=== PATIENT | female | born 2000 | race Hispanic/Latino ===

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

== ENCOUNTER 2021-04-09 22:00 | Outpatient (CLI) | payer BC, MEDICAID, SELFPAY ==
[2021-04-09 22:04] VITALS: BMI 28.6
[2021-04-09 22:11] VITALS: PULSE 78; O2SAT 98
--- NOTE | 2021-04-09 22:29 | OB.TRI.NOTE ---
HPI - General HPI Narrative IZABELA CORDERO, is a 20 F at 38.6 weeks gestation that presents to triage with contractions and small amount of vaginal bleeding. She noticed today after wiping. Denies any loss of fluid. Positive movement. Maternal Data Information SUNNY Calculator Estimated Delivery Date Method Current WG Current Estimate 04/17/21 Manual 39w 2d PFSH PFSH Home Medications doxylamine succinate 25 mg PO QHS 11/28/20 [History Last Taken 04/08/21 10:00] ondansetron HCl 4 mg PO Q6H PRN PRN 11/28/20 [History Last Taken 04/09/21] vit,[id number] 1 tablet PO DAILY 11/28/20 [History Last Taken 04/10/21 10:00] hydroxyzine pamoate [Vistaril] 25 mg PO Q6H PRN PRN 04/09/21 [History Last Taken 04/05/21 10:00] ferrous sulfate [iron] 325 mg PO DAILY 04/11/21 [History Last Taken 04/09/21] Allergy/AdvReac Type Severity Reaction Status Date / Time No Known Allergies Allergy Verified 04/11/21 08:26 Family History Father Diabetes Grandmother Diabetes Cancer Grandfather Diabetes Grandfather Hypertension Mother Asthma Surgical History [place] teeth extracted Social History Smoking Status: Former smoker History Elective abortions Hx Para 0 Spontaneous abortions Hx # Term Pregnancies Ectopic pregnancies Hx # Pregnancies Multiple births # of living children ROS Eyes Eyes: Denies blurry vision Cardiovascular Cardiovascular: Reports none; Denies chest pain at rest, chest pain with activity or dizziness Respiratory/Chest Respiratory/Chest: Denies cough or dyspnea Gastrointestinal Gastrointestinal: Reports none and other; Denies diarrhea or vomiting Genitourinary Genitourinary: Denies dysuria Musculoskeletal Musculoskeletal: Reports none Integumentary Integumentary: Reports none; Denies rash Neurologic Neurologic: Denies dizziness, headache(s) or other visual disturbances Psychiatric Psychiatric: Reports none Physical Exam Const alert and no apparent distress General Appearance: cooperative Orientation / Consciousness: awake Exam Limitations: no limitations HEENT normocephalic Eyes General Eye: normal appearance of both eyes Neck full ROM Chest inspection of chest normal Resp normal respiratory effort and normal air movement Effort and Inspection: symmetric chest movement Auscultation: clear to auscultation bilaterally Cardio regular rate GI soft to palpation, non-tender and non-distended Inspection: and other Back/Spine normal ROM Extremity full ROM, normal capillary refill and no calf tenderness Skin no rashes or lesions noted Neuro oriented x3 and CN's II-XII intact bilaterally Psych mental status grossly normal NST FHR Rate Baby A Baseline: 140 Variability:: Moderate Accelerations:: 15 x 15 Decelerations:: None NST Reactive:: Yes FHR Category:: Category I Uterine Activity:: 4-5 minutes Assessment & Plan (1) 38 weeks gestation of : PLAN: Cat. 1 tracing NST reactive CE unchanged No active vaginal bleeding or old blood noted D/C home with follow up in office Dr. Ball notified
== END 2021-04-09 23:40 | disposition home or self-care (01) ==
LOC: WPOUT 22:04 → WP 22:04
PROVIDERS: PCP Pediatrics; Visit Provider Advanced Practice Midwife
DX: O46.93 Antepartum hemorrhage, unspecified, third trimester (principal); Z3A.38 38 weeks gestation of pregnancy
CPT/HCPCS: 59025; 59050; 99218; G0378

== ENCOUNTER 2021-04-11 08:40 | Inpatient (IN) | payer BC, MEDICAID, SELFPAY ==
[2021-04-09 22:20] VITALS: TEMP 36.6
[2021-04-11] VITALS (114 sets, daily range): BP systolic 116–165; BP diastolic 66–99; PULSE 62–113; TEMP 36.2–37.1; O2SAT 95–99; BMI 28.6
[2021-04-11] MEDS: Lactated Ringers 1,000 ML 200 ML IV ×2 (09:00→14:27)
[2021-04-11] MEDS: Lactated Ringers 500 ML 999 ML IV (09:15)
[2021-04-11 09:34] LABS: Absolute Lymphocyte Count 1.74 X10^3/uL (0.83-4.51); Absolute Neutrophil Count 7.2 X10^3/uL (2.0-7.7); Basophil# 0.02 X10^3/uL; Basophil% 0.2 % (0-1); Hematocrit 33.8 % (37-47); Hemoglobin 10.9 g/dL (12.0-15.0); Lymphocyte # 1.74 X10^3/ul (0.83-4.51); Lymphocyte % 17.9 % (19-41); Mean Corp Hgb Conc 32.2 g/dL (32-36); Mean Corpuscular Hgb 28.7 pg (27.0-32.0); Mean Corpuscular Volume 88.9 fL (81-99); Mean Platelet Vol. 12.6 fl (6.2-12.0); Monocyte# 0.64 X10^3/uL; Monocyte% 6.6 % (0-10); NRBC Flagged by Analyzer 0 % (0-5); Neutrophil # 7.16 X10^3/uL (2.7-7.7); Neutrophil % 73.8 % (47-70); Platelet Count 170 K/mm3 (150-450); RBC Distribution Width CV 13.2 % (11.6-14.6); RBC Distribution Width SD 43.2 fl (35.1-43.9); White Blood Count 9.7 K/mm3 (4.4-11.0)
[2021-04-11] MEDS: fentaNYL-bupivacaine (epidural) 100 ML BAG EPIDURAL ×2 (10:29→14:34)
[2021-04-11] MEDS: Oxytocin 30 units/NS 500 ml 30 UNITS/500 ML IV.SOLN 334 UNITS IV (19:00)
[2021-04-11] MEDS: Methylergonovine 0.2 MG/ML Ampul IM (19:08)
--- NOTE | 2021-04-11 19:22 | HP.PCM.OB_ITS ---
HPI - General General Date of Admission: 04/11/21 HPI Narrative IZABELA CORDERO, is a 20 F who presents with LOF & ctxs. Maternal Data Information Final SUNNY: 04/17/21 Gestational age: 39&1 PFSH PFSH Home Medications doxylamine succinate 25 mg PO QHS 11/28/20 [History Last Taken 04/08/21 10:00] ondansetron HCl 4 mg PO Q6H PRN PRN 11/28/20 [History Last Taken 04/09/21] vit,[id number] 1 tablet PO DAILY 11/28/20 [History Last Taken 04/10/21 10:00] hydroxyzine pamoate [Vistaril] 25 mg PO Q6H PRN PRN 04/09/21 [History Last Taken 04/05/21 10:00] ferrous sulfate [iron] 325 mg PO DAILY 04/11/21 [History Last Taken 04/09/21] Allergy/AdvReac Type Severity Reaction Status Date / Time No Known Allergies Allergy Verified 04/11/21 08:26 Family History (Updated 04/11/21 @ 09:28 by Neena Alegria RN) Father Diabetes Grandmother Diabetes Cancer Grandfather Diabetes Grandfather Hypertension Mother Asthma Surgical History (Updated 04/11/21 @ 09:26 by Neena Alegria RN) [place] teeth extracted Social History Smoking Status: Former smoker History Elective abortions Hx Para 0 Spontaneous abortions Hx # Term Pregnancies Ectopic pregnancies Hx # Pregnancies Multiple births # of living children Vital Signs Vital Signs Vital Signs: 04/11/21 08:33 04/11/21 10:03 04/11/21 10:07 Temperature 98.2 F 98.2 F Temperature Source Temporal Pulse Rate 95 91 Blood Pressure 141/98 H BP Systolic 141 BP Diastolic 98 Pulse Ox 98 04/11/21 10:08 04/11/21 10:12 04/11/21 10:13 Temperature Temperature Source Pulse Rate 86 90 85 Blood Pressure 125/75 H BP Systolic 125 BP Diastolic 75 Pulse Ox 97 99 04/11/21 10:18 04/11/21 10:23 04/11/21 10:28 Temperature Temperature Source Pulse Rate 86 89 85 Blood Pressure 137/93 H 154/96 H 146/89 H BP Systolic 137 154 146 BP Diastolic 93 96 89 Pulse Ox 98 99 98 04/11/21 10:32 04/11/21 10:33 04/11/21 10:37 Temperature Temperature Source Pulse Rate 87 87 87 Blood Pressure 142/85 H 136/77 H BP Systolic 142 136 BP Diastolic 85 77 Pulse Ox 98 04/11/21 10:38 04/11/21 10:42 04/11/21 10:43 Temperature Temperature Source Pulse Rate 79 78 75 Blood Pressure 135/80 H BP Systolic 135 BP Diastolic 80 Pulse Ox 99 97 04/11/21 10:47 04/11/21 10:48 04/11/21 10:52 Temperature Temperature Source Pulse Rate 76 77 76 Blood Pressure 131/77 H 132/78 H BP Systolic 131 132 BP Diastolic 77 78 Pulse Ox 97 04/11/21 10:53 04/11/21 10:57 04/11/21 10:58 Temperature Temperature Source Pulse Rate 77 72 73 Blood Pressure 130/78 H BP Systolic 130 BP Diastolic 78 Pulse Ox 97 96 04/11/21 11:03 04/11/21 11:08 04/11/21 11:13 Temperature Temperature Source Pulse Rate 80 72 72 Blood Pressure BP Systolic BP Diastolic Pulse Ox 96 97 97 04/11/21 11:18 04/11/21 11:23 04/11/21 11:28 Temperature Temperature Source Pulse Rate 71 72 72 Blood Pressure 131/81 H BP Systolic 131 BP Diastolic 81 Pulse Ox 97 97 97 04/11/21 11:33 04/11/21 11:38 04/11/21 11:43 Temperature Temperature Source Pulse Rate 72 72 71 Blood Pressure BP Systolic BP Diastolic Pulse Ox 97 97 97 04/11/21 11:48 04/11/21 11:50 04/11/21 11:53 Temperature 98.4 F Temperature Source Pulse Rate 79 77 Blood Pressure BP Systolic BP Diastolic Pulse Ox 97 97 04/11/21 11:58 04/11/21 12:03 04/11/21 12:08 Temperature Temperature Source Pulse Rate 86 75 73 Blood Pressure 116/66 BP Systolic 116 BP Diastolic 66 Pulse Ox 97 97 97 04/11/21 12:13 04/11/21 12:18 04/11/21 12:23 Temperature Temperature Source Pulse Rate 70 74 78 Blood Pressure BP Systolic BP Diastolic Pulse Ox 97 98 98 04/11/21 12:27 04/11/21 12:28 04/11/21 12:29 Temperature 97.9 F Temperature Source Temporal Pulse Rate 75 78 Blood Pressure 124/87 H BP Systolic 124 BP Diastolic 87 Pulse Ox 98 04/11/21 12:33 04/11/21 12:38 04/11/21 12:43 Temperature Temperature Source Pulse Rate 80 80 87 Blood Pressure BP Systolic BP Diastolic Pulse Ox 98 98 98 04/11/21 12:48 04/11/21 12:53 04/11/21 12:58 Temperature Temperature Source Pulse Rate 76 89 Blood Pressure BP Systolic BP Diastolic Pulse Ox 97 98 97 04/11/21 12:59 04/11/21 13:03 04/11/21 13:08 Temperature Temperature Source Pulse Rate 93 75 89 Blood Pressure 131/93 H BP Systolic 131 BP Diastolic 93 Pulse Ox 98 97 04/11/21 13:13 04/11/21 13:18 04/11/21 13:23 Temperature Temperature Source Pulse Rate 76 81 76 Blood Pressure BP Systolic BP Diastolic Pulse Ox 98 98 98 04/11/21 13:28 04/11/21 13:30 04/11/21 13:33 Temperature 97.2 F L Temperature Source Pulse Rate 74 68 Blood Pressure 142/86 H BP Systolic 142 BP Diastolic 86 Pulse Ox 95 98 04/11/21 13:38 04/11/21 13:43 04/11/21 13:48 Temperature Temperature Source Pulse Rate 73 69 71 Blood Pressure BP Systolic BP Diastolic Pulse Ox 97 98 97 04/11/21 13:53 04/11/21 13:58 04/11/21 14:03 Temperature Temperature Source Pulse Rate 70 73 69 Blood Pressure 125/83 H BP Systolic 125 BP Diastolic 83 Pulse Ox 98 97 98 04/11/21 14:08 04/11/21 14:13 04/11/21 14:18 Temperature Temperature Source Pulse Rate 70 62 69 Blood Pressure BP Systolic BP Diastolic Pulse Ox 97 97 98 04/11/21 14:22 04/11/21 14:24 04/11/21 14:28 Temperature 98.4 F Temperature Source Pulse Rate 72 79 Blood Pressure 133/91 H BP Systolic 133 BP Diastolic 91 Pulse Ox 99 04/11/21 14:29 04/11/21 14:34 04/11/21 14:39 Temperature Temperature Source Pulse Rate 79 76 79 Blood Pressure BP Systolic BP Diastolic Pulse Ox 98 98 97 04/11/21 14:44 04/11/21 14:49 04/11/21 14:54 Temperature Temperature Source Pulse Rate 81 86 74 Blood Pressure BP Systolic BP Diastolic Pulse Ox 98 98 98 04/11/21 14:58 04/11/21 14:59 04/11/21 15:04 Temperature Temperature Source Pulse Rate 67 73 78 Blood Pressure 139/93 H BP Systolic 139 BP Diastolic 93 Pulse Ox 98 97 04/11/21 15:09 04/11/21 15:14 04/11/21 15:19 Temperature Temperature Source Pulse Rate 78 74 78 Blood Pressure BP Systolic BP Diastolic Pulse Ox 98 98 98 04/11/21 15:24 04/11/21 15:25 04/11/21 15:27 Temperature 97.9 F Temperature Source Temporal Pulse Rate 73 71 Blood Pressure 137/78 H BP Systolic 137 BP Diastolic 78 Pulse Ox 97 04/11/21 15:29 04/11/21 15:34 04/11/21 15:39 Temperature Temperature Source Pulse Rate 79 71 70 Blood Pressure BP Systolic BP Diastolic Pulse Ox 96 96 96 04/11/21 15:44 04/11/21 15:49 04/11/21 15:54 Temperature Temperature Source Pulse Rate 73 86 84 Blood Pressure BP Systolic BP Diastolic Pulse Ox 97 98 97 04/11/21 15:58 04/11/21 15:59 04/11/21 16:04 Temperature Temperature Source Pulse Rate 85 80 77 Blood Pressure 132/80 H BP Systolic 132 BP Diastolic 80 Pulse Ox 97 98 04/11/21 16:06 04/11/21 16:55 04/11/21 16:59 Temperature 97.2 F L 97.7 F L Temperature Source Pulse Rate 72 Blood Pressure 131/70 H BP Systolic 131 BP Diastolic 70 Pulse Ox 04/11/21 18:06 04/11/21 18:07 04/11/21 18:12 Temperature 98.2 F Temperature Source Pulse Rate 71 96 Blood Pressure 132/89 H BP Systolic 132 BP Diastolic 89 Pulse Ox 98 98 04/11/21 18:17 04/11/21 18:22 04/11/21 18:27 Temperature Temperature Source Pulse Rate 80 93 113 H Blood Pressure BP Systolic BP Diastolic Pulse Ox 98 99 99 04/11/21 19:17 04/11/21 19:19 Temperature 98.8 F Temperature Source Pulse Rate 83 Blood Pressure 144/83 H BP Systolic 144 BP Diastolic 83 Pulse Ox Weight Weight: 172 lb 2.896 oz Body Mass Index (BMI) 28.6 Physical Exam Const alert and oriented x3 GI soft to palpation, non-tender and non-distended Inspection: gravid external exam normal Narrative: cvx - 3/70/-2 on admission Extremity normal to inspection Labs Labs Labs: Blood Type O POSITIVE Antibody Screen NEGATIVE Hct 33.8 % (37-47) L Hgb 10.9 g/dL (12.0-15.0) L See [facility] H&P Assessment & Plan (1) Supervision of normal first : QUALIFIERS: Trimester: third trimester Qualified Code(s): Z34.03 - Encounter for supervision of normal first , third trimester COMMENT: 39&1 PLAN: Admit to L&D Labor & SROM - expectant management GBS negative COVID negative Pain - epidural EFW - less than 4500g, patient with adequate pelvis
--- NOTE | 2021-04-11 19:28 | EX.PCM.OBRPT ---
Assessment & Plan (1) Supervision of normal first : QUALIFIERS: Trimester: third trimester Qualified Code(s): Z34.03 - Encounter for supervision of normal first , third trimester COMMENT: 39&1 Maternal Data Information Final SUNNY: 04/17/21 Gestational age: 39&1 Vaginal Delivery Maternal Presentation Maternal Presentation: Active Labor and Spontaneous Rupture of Membranes Operative Information Date of Procedure: 04/11/21 Pre-Operative Diagnosis: Labor Post-Operative Diagnosis: Same Surgery / Procedure Performed: Spontaneous Vaginal Delivery Type of Anesthesia: Epidural Estimated Blood Loss: 450ml Findings Description of Procedure: Patient prepped & draped when C/C/+2. She pushed well to deliver the head. Tight double nuchal cord clamped and cut. head gently guided to allow delivery of anterior and posterior shoulders. No excess traction placed on head. Body delivered easily. Placenta delivered with gentle traction and good uterine tone obtained. Presentation: BC Amniotic Fluid Description: Clear Placental Delivery Description: Expressed Placenta Disposition: [facility] Specimen(s) Removed: Placenta Cord Vessel Description: 3 Vessels Cord Entanglement: Around neck x 2, tight Nuchal Cord Compression: With compression Infant A Gender: Female (Maryerelda) (1 minute): 8 (5 minute): 9 Delayed Cord Clamping: No Post Vaginal Delivery Medications Given After Delivery: IV Pitocin and IM Methergin Episiotomy Description: None Laceration: 1st degree (bilateral vaginal - repaired with 3-0 vicryl) Complication Complications: None
[2021-04-11] MEDS: Ondansetron 4 MG/2 ML Vial IV (19:42)
[2021-04-11] MEDS: Labetalol (Prefilled) 20 MG/4 ML 10 MG IV (19:53)
[2021-04-11] MEDS: Labetalol (Prefilled) 20 MG/4 ML IV (20:14)
[2021-04-12 00:28] VITALS: BP 145/78; PULSE 85; RESP 16; TEMP 36.7
[2021-04-12] MEDS: Ibuprofen 600 MG Tablet PO (02:39)
[2021-04-12 04:00] VITALS: BP 119/77; PULSE 102; RESP 14; TEMP 37.2
--- NOTE | 2021-04-12 08:35 | PCM.PN.OB ---
Subjective Subjective Patient seen at bedside. Resting quietly. Feeling tired. Ambulating and voiding without difficulty. Denies pain. Breast feeding with support. Anticipate discharge home tomorrow. Objective Data Objective Data Vital Signs: Vital Signs Temp Pulse Resp BP Pulse Ox 98.9 F 102 H 14 119/77 99 04/12/21 04:00 04/12/21 04:00 04/12/21 04:00 04/12/21 04:00 04/11/21 18:27 Oxygen Delivery Method Room Air Weight: 172 lb 2.896 oz Body Mass Index (BMI) 28.6 Intake & Output: Intake and Output for Last 24 Hours 04/10/21 04/11/21 04/12/21 23:59 23:59 23:59 Intake Total 3903.33 / 3903.33 Output Total 3300 / 3300 Balance 603.33 / 603.33 Lab / Micro Data Result Diagrams: 04/11/21 09:00 Labs: Laboratory Results - last 24 hr 04/11/21 09:00: WBC 9.7, RBC 3.80 L, Hgb 10.9 L, Hct 33.8 L, MCV 88.9, MCH 28.7, MCHC 32.2, RDW Std Deviation 43.2, RDW Coeff of Tri 13.2, Plt Count 170, MPV 12.6 H, Immature Gran % (Auto) 0.500, Neut % (Auto) 73.8 H, Lymph % (Auto) 17.9 L, [place] % (Auto) 6.6, Eos % (Auto) 1.0, Baso % (Auto) 0.2, Absolute Neuts (auto) 7.2, Absolute Lymphs (auto) 1.74, Nucleated RBC % 0 04/11/21 09:00: Blood Type O POSITIVE, Antibody Screen NEGATIVE ROS Eyes Eyes: Denies blurry vision, change in vision or spots in vision ENT HEENT: Denies dizziness or headache(s) Cardiovascular Cardiovascular: Denies abdominal pain, chest pain or dyspnea Respiratory/Chest Respiratory/Chest: Denies cough, dyspnea, shortness of breath at rest or shortness of breath with exertion Gastrointestinal Gastrointestinal: Denies abdominal pain, diarrhea or vomiting Genitourinary Genitourinary: Denies change in urinary stream, difficulty urinating or dysuria Musculoskeletal Musculoskeletal: Reports none Integumentary Integumentary: Denies rash Neurologic Neurologic: Denies dizziness, headache(s), memory loss or weakness Psychiatric Psychiatric: Reports none Physical Exam Const alert and no apparent distress General Appearance: cooperative and comfortable Exam Limitations: no limitations HEENT normocephalic Eyes General Eye: normal appearance of both eyes Neck full ROM General: normal visual inspection Chest Chest: symmetrical chest wall rise Resp normal respiratory effort and normal air movement Effort and Inspection: symmetric chest movement Auscultation: clear to auscultation bilaterally Cardio regular rate and regular rhythm GI normal to inspection, nondistended, normoactive bowel sounds Back/Spine normal ROM Extremity full ROM and no calf tenderness General Extremity: normal exam except as noted Skin no rashes or lesions noted Neuro CN's II-XII intact bilaterally Psych mental status grossly normal Assessment & Plan (1) (spontaneous vaginal delivery): (2) Laceration, obstetrical, first degree: PLAN: PPD #1 Routine care support Anticipate discharge home tomorrow
[2021-04-12 08:47] VITALS: BP 127/77; PULSE 81; RESP 18; TEMP 36.5
[2021-04-12 11:10] VITALS: BP 123/80; PULSE 86; RESP 16; TEMP 36.6
[2021-04-12 16:28] VITALS: BP 130/88; PULSE 90; RESP 16; TEMP 36.8
[2021-04-12 20:04] VITALS: BP 134/93; PULSE 79; RESP 18; TEMP 36.3
[2021-04-13 03:23] VITALS: BP 134/80; PULSE 75; RESP 18
[2021-04-13] MEDS: Acetaminophen 500 MG Tablet 1000 MG PO (03:27)
[2021-04-13 08:25] VITALS: BP 127/89; PULSE 75; RESP 16; TEMP 36.5
--- NOTE | 2021-04-13 08:43 | PCM.PN.OB ---
Subjective Subjective Patient seen at bedside. Sitting in chair . Feeling good. Ambulating and voiding. Lochia decreasing. Denies any pain. Desires discharge home today. Objective Data Objective Data Vital Signs: Vital Signs Temp Pulse Resp BP Pulse Ox 97.7 F L 75 16 127/89 H 99 04/13/21 08:25 04/13/21 08:25 04/13/21 08:25 04/13/21 08:25 04/11/21 18:27 Oxygen Delivery Method Room Air Weight: 172 lb 2.896 oz Body Mass Index (BMI) 28.6 Intake & Output: Intake and Output for Last 24 Hours 04/11/21 04/12/21 04/13/21 23:59 23:59 23:59 Intake Total 3903.33 / 3903.33 Output Total 3300 / 3300 Balance 603.33 / 603.33 Lab / Micro Data Result Diagrams: 04/11/21 09:00 ROS Eyes Eyes: Denies blurry vision, change in vision or spots in vision ENT HEENT: Denies dizziness or headache(s) Cardiovascular Cardiovascular: Denies abdominal pain, chest pain or dyspnea Respiratory/Chest Respiratory/Chest: Denies cough, dyspnea, shortness of breath at rest or shortness of breath with exertion Gastrointestinal Gastrointestinal: Denies abdominal pain, diarrhea or vomiting Genitourinary Genitourinary: Denies change in urinary stream, difficulty urinating or dysuria Musculoskeletal Musculoskeletal: Reports none Integumentary Integumentary: Denies rash Neurologic Neurologic: Denies dizziness, headache(s), memory loss or weakness Physical Exam Const alert and no apparent distress General Appearance: cooperative and comfortable Exam Limitations: no limitations HEENT normocephalic Eyes General Eye: normal appearance of both eyes Neck full ROM General: normal visual inspection Chest Chest: symmetrical chest wall rise Resp normal respiratory effort and normal air movement Effort and Inspection: symmetric chest movement Auscultation: clear to auscultation bilaterally Cardio regular rate and regular rhythm GI normal to inspection, nondistended, normoactive bowel sounds Back/Spine normal ROM Extremity full ROM and no calf tenderness General Extremity: normal exam except as noted Skin no rashes or lesions noted Neuro CN's II-XII intact bilaterally Psych mental status grossly normal Assessment & Plan (1) Laceration, obstetrical, first degree: (2) (spontaneous vaginal delivery): PLAN: PPD #2 Routine care support Discharge home with follow up in office
--- NOTE | 2021-04-13 08:45 | PCM.DC ---
Discharge Instructions Diet Discharge Diet: No restrictions Activity May resume sexual activity in: 6-8 weeks Weight Bearing Status: Weight bearing as tolerated Dressing / Incision Call your doctor if you observe: Fever of 101 or Higher, Inability to urinate, Using more than 1 pad per hour, Shortness of breath, Chest pain, Calf discomfort and Uncontrolled pain Follow Up Care Please Follow Up With: Charlene Wilde CNM When: 2 weeks virtual visit/ 6 weeks in office Test Results: Test results from this visit will be discussed in further detail at your follow-up appointment, if applicable. Discharge Plan Admission Admit Date/Time: 04/11/21 08:40 Primary Reason for Your Visit: Labor Attending Provider: Henry Ball Primary Care Provider: Shanique Blevins Instructions Patient Instructions: After a Vaginal , Perineum Care After Childbirth Discharge Orders/Prescriptions Prescriptions: Continued vit,[id number] 1 TABLET tablet 1 tablet PO DAILY RF: 0 ferrous sulfate [iron] 325 mg (65 mg iron) Tablet 325 mg PO DAILY RF: 0 Discontinued ondansetron HCl 4 MG tablet 4 mg PO Q6H PRN PRN (Reason: Nausea) RF: 0 doxylamine succinate 25 MG tablet 25 mg PO QHS RF: 0 hydroxyzine pamoate [Vistaril] 25 mg Capsule 25 mg PO Q6H PRN PRN (Reason: itchiness) RF: 0 Referrals / Follow Up: Shanique Blevins MD [Primary Care Provider] - Disposition Disposition (needs filled in before D/C Order can be placed): Home, Self Care
== END 2021-04-13 09:25 | disposition home or self-care (01) | DRG 807 ==
LOC: WP 08:48 → WPOUT 04-12 09:35
PROVIDERS: Admitting Provider Obstetrics & Gynecology; PCP Pediatrics; Referring Provider Obstetrics & Gynecology; Visit Provider Obstetrics & Gynecology
DX: O69.1XX0 Labor and delivery complicated by cord around neck, with compression, not applicable or unspecified (principal); Z37.0 Single live birth; O70.0 First degree perineal laceration during delivery; Z87.891 Personal history of nicotine dependence; Z3A.39 39 weeks gestation of pregnancy
CPT/HCPCS: 59025; 59050; 85025; 86850; 86900; 86901; 99218; J7120; G0378; J2405

== ENCOUNTER 2023-02-07 10:44 | Emergency (ER) | payer OTHER, MEDICAID, SELFPAY ==
[2023-02-07 10:45] VITALS: BP 131/95; PULSE 44; RESP 16; TEMP 36.4; O2SAT 100; BMI 20.9
--- NOTE | 2023-02-07 11:15 | EX.ED.GENINJ ---
HPI <KRYSTIAN Galicia - Last Filed: 02/07/23 12:03> History of Present Illness Chief Complaint: Bite Narrative Narrative: Patient presenting today with a dog bite to her right lower extremity that occurred this afternoon. She reports that her dog was licking the wall and she was trying to stop her from doing that, and the dog bit her leg. The dog is up-to-date on vaccines, including rabies. Patient is up-to-date on tetanus. She denies any other injury. She is not on any blood thinners. PFSH <KRYSTIAN Galicia - Last Filed: 02/07/23 12:03> PFSH Medical History Laceration, obstetrical, first degree Supervision of normal first (spontaneous vaginal delivery) Home Medications vits,calcium no.78-iron fumarate-folic acid 29 mg-1 mg tablet 1 tablet PO DAILY 11/28/20 [History Last Taken 04/10/21 10:00] ferrous sulfate 325 mg (65 mg iron) tablet (iron) 325 mg PO DAILY 04/11/21 [History Last Taken 04/09/21] amoxicillin 875 mg-potassium clavulanate 125 mg tablet 1 tab PO BID #14 tabs 02/07/23 [Rx Last Taken Unknown] Allergy/AdvReac Type Severity Reaction Status Date / Time No Known Allergies Allergy Verified 02/07/23 10:47 Family History Father Diabetes Grandmother Diabetes Cancer Grandfather Diabetes Grandfather Hypertension Mother Asthma Surgical History [place] teeth extracted Social History Smoking Status: Former smoker ROS <KRYSTIAN Galicia - Last Filed: 02/07/23 12:03> ROS ED Constitutional Constitutional ED: Denies chills or fever(s) Cardiovascular Cardiovascular: Denies chest pain Respiratory/Chest Respiratory/Chest: Denies cough or dyspnea Gastrointestinal Gastrointestinal: Denies abdominal pain, nausea or vomiting Genitourinary Genitourinary ED: Denies dysuria, hematuria or urinary urgency Musculoskeletal Musculoskeletal: Reports myalgias; Denies arthralgias Integumentary Reports bleeding lesions; Denies abscess Neurologic Neurologic: Denies paresthesias or weakness EXAM <KRYSTIAN Galicia - Last Filed: 02/07/23 12:03> Physical Exam Const Vital Signs: 02/07/23 10:45 Temperature 97.5 F L Temperature Source Temporal Pulse Rate 44 L Respiratory Rate 16 Blood Pressure 131/95 H Blood Pressure Mean 107 Pulse Ox 100 Oxygen Delivery Method Room Air Positive well nourished, well developed and no apparent distress General Appearance ED: well developed HEENT Reports normocephalic and head/scalp atraumatic Mouth ED: Yes moist mucous membranes normal Eyes PERRL and EOMs intact bilaterally Neck full ROM and supple Chest Wall inspection of chest normal Resp normal respiratory effort and clear to auscultation bilaterally Cardio regular rate and regular rhythm GI soft to palpation, non-tender, non-distended and no masses Back/Spine normal ROM and normal to inspection Extremity normal to inspection and full ROM Extremity Narrative: 3 small puncture wounds to the right lower extremity below the knee on the medial aspect of the leg below knee. Bleeding is controlled. Neuro oriented x3, CN's II-XII intact bilaterally, moves all extremities, no focal motor deficits and no sensory deficits noted Sensorium / Orientation: awake and alert Motor Exam: strength 5/5 throughout Psych mental status grossly normal and thought process normal <Dr. Roberto Umaña, DO - Last Filed: 02/07/23 21:34> Physical Exam Const Vital Signs: 02/07/23 10:45 Temperature 97.5 F L Temperature Source Temporal Pulse Rate 44 L Respiratory Rate 16 Blood Pressure 131/95 H Blood Pressure Mean 107 Pulse Ox 100 Oxygen Delivery Method Room Air MDM <KRYSTIAN Galicia - Last Filed: 02/07/23 12:03> [facility] Narrative Medical decision making narrative: Patient presenting today with a dog bite from her dog on her right lower extremity below the knee. There are 3 small puncture wounds to the medial aspect of her right lower leg just below the knee. Tetanus is up-to-date. The wounds were extensively irrigated and cleaned with chlorhexidine and saline. Bacitracin ointment was applied and wounds were bandaged. She has been educated on signs of infection to look out for. She was started on Augmentin with first dose here. She will be discharged home in stable condition and is comfortable with plan. She is to follow-up with her PCP in 3 to 5 days. <Dr. Roberto Umaña, DO - Last Filed: 02/07/23 21:34> [facility] Treatment and Re-Evaluation Narrative: I have personally performed a face to face assessment of the patient and have reviewed the BETH Note. I performed a substantive portion of the visit including all aspects of the following. My engel findings include: History: Patient presents with dog bite to her right lower leg. Patient states it was her dog who bit her. Patient states the dog's immunizations are up-to-date. Patient states her immunizations are up-to-date. Patient states the bleeding stopped after several minutes of pressure. Patient denies any paresthesias or weakness. Patient denies any other injury. Exam: Vital signs are stable. Patient is afebrile. Patient is in no acute distress. Skin is warm and dry. There are 2 puncture wounds over the medial aspect of the proximal right lower leg. There is moderate gapping of the wound margins. There are no foreign bodies noted. There is no active bleeding noted. There is moderate tenderness over the wounds. There is no bony crepitance or step-off. There is good range of motion. Strength is 5/5 bilaterally in the lower extremities. There are no sensory deficits noted. Medical Decision Making: The wounds were cleaned and dressed with bacitracin dressing. Patient was advised that dog bites tend to get infected easily and suturing would make that worse. Patient and family understand and are agreeable with the plan. Patient was given a dose of Augmentin here. Patient was given a prescription for Augmentin. Patient was instructed to keep the wounds clean and dry. Patient and family understand and are agreeable with the plan. All questions were answered. Discharge Plan Triage Chief Complaint: Bite ED Midlevel Provider: Nohelia Huitron ED Provider: Roberto Umaña Dx/Rx/DC Orders Clinical Impression: Dog bite Instructions: ED Dog Bite Prescriptions: New amoxicillin-pot clavulanate 875-125 mg tablet 1 tab PO BID Qty: 14 0RF No Action vit,[id number] 1 TABLET tablet 1 tablet PO DAILY ferrous sulfate [iron] 325 mg (65 mg iron) Tablet 325 mg PO DAILY Primary Care Provider: Care Physician,Collette Primary Referrals: Shanique Blevins MD [Non-Staff] - 3-5 Days Activity Restrictions/Additional Instructions: Keep area clean and covered, follow-up with your PCP and return for any worsening of symptoms or concerns for infection. Disposition Disposition: Home, Self Care Discharge Date/Time: 02/07/23 12:15
[2023-02-07] MEDS: Amox/Clavulanate 875 MG Tablet PO (11:50)
== END 2023-02-07 12:15 | disposition home or self-care (01) ==
LOC: ED 12:01
PROVIDERS: Emergency Provider Emergency Medicine; Visit Provider Emergency Medicine
DX: S81.831A Puncture wound without foreign body, right lower leg, initial encounter (principal); Z87.891 Personal history of nicotine dependence; W54.0XXA Bitten by dog, initial encounter
CPT/HCPCS: 99283

== ENCOUNTER → 2023-05-26 | Outpatient (CLI) | payer OTHER, MEDICAID, SELFPAY ==
[2023-05-28 12:09] LABS: QNTFERON TB Mitogen Value > 10.00 IU/mL (.); QNTFERON TB Nil Value 0.01 IU/mL (.); QNTFERON TB1+ Ag Value 0.02 IU/mL (.); QNTFERON TB2+ Ag Value 0.05 IU/mL (.); QNTIFERON TB Positive Criteria Negative (Negative)
== END | disposition home or self-care (01) ==
PROVIDERS: Referring Provider Physician Assistant; Visit Provider Physician Assistant
DX: Z02.1 Encounter for pre-employment examination (principal)
CPT/HCPCS: 36415; 86480

== ENCOUNTER 2023-07-09 03:38 | Emergency (ER) | payer OTHER, MEDICAID, SELFPAY ==
[2023-07-09 03:39] VITALS: BP 122/82; PULSE 80; RESP 15; TEMP 36.7; O2SAT 97
--- NOTE | 2023-07-09 03:46 | CT_ITS ---
STUDY: CT CERVICAL SPINE WITHOUT CONTRAST REASON FOR EXAM: Female, 22 years old. Trauma RADIATION DOSAGE (If Supplied By Facility): CTDIvol = ( 18.40 ) mGy, DLP = ( 1162.57 ) mGycm TECHNIQUE: High resolution transaxial imaging was performed without contrast material. Sagittal and coronal images were reconstructed. Individualized dose optimization techniques were used for this CT. COMPARISON: None FINDINGS: Normal craniovertebral junction. Normal anterior atlantoaxial articulation. Normal odontoid process. Normal cervical lordosis. Normal vertebral bodies and posterior osseous elements. C2-3: Normal endplates. Normal disc height and morphology. Normal central canal and intervertebral neuroforamina. C3-4: Normal endplates. Normal disc height and morphology. Normal central canal and intervertebral neuroforamina. C4-5: Normal endplates. Normal disc height and morphology. Normal central canal and intervertebral neuroforamina. C5-6: Normal endplates. Normal disc height and morphology. Normal central canal and intervertebral neuroforamina. C6-7: Normal endplates. Normal disc height and morphology. Normal central canal and intervertebral neuroforamina. C7-T1: Normal endplates. Normal disc height and morphology. Normal central canal and intervertebral neuroforamina. Normal visualized soft tissue structures. CT/Spine Cervical without Contras IMPRESSION: Normal unenhanced CT examination of the cervical spine. Electronically Signed: Donna Dan MD at 4:41 EST ,
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
--- NOTE | 2023-07-09 03:46 | CT_ITS ---
STUDY: CT BRAIN WITHOUT CONTRAST REASON FOR EXAM: Female, 22 years old. Trauma RADIATION DOSAGE (If Supplied By Facility): CTDIvol = ( 44.99 ) mGy, DLP = ( 1162.57 ) mGycm TECHNIQUE: Transaxial CT imaging of the brain was performed without administration of intravenous contrast material. Individualized dose optimization techniques were used for this CT. COMPARISON: No relevant priors. FINDINGS: Normal soft tissue structures. Normal calvarium. Normal size ventricles and extra-axial spaces for the patient''s age. Normal white matter tracts of the cerebral hemispheres. Normal basal ganglia and thalami. Normal brainstem. Normal cerebellum. There is no intracranial hemorrhage. There are no findings of an acute ischemic infarction. Normal visualized paranasal sinuses. CT/Brain/Head without Contrast IMPRESSION: Normal unenhanced CT scan of the brain. Electronically Signed: Donna Dan MD at 4:18 EST ,
[2023-07-09] MEDS: Ondansetron ODT 4 MG Tablet PO (03:53)
[2023-07-09] MEDS: Acetaminophen 500 MG Tablet 1000 MG PO (04:15)
[2023-07-09 04:51] VITALS: BMI 18.3
== END 2023-07-09 04:53 | disposition home or self-care (01) ==
PROVIDERS: Emergency Provider Emergency Medicine; Visit Provider Emergency Medicine
DX: S06.0X0A Concussion without loss of consciousness, initial encounter (principal); Y04.8XXA Assault by other bodily force, initial encounter; Z87.891 Personal history of nicotine dependence
CPT/HCPCS: 70450; 72125; 99283

== ENCOUNTER 2023-12-19 09:09 | Emergency (ER) | payer MEDICAID, SELFPAY ==
[2023-12-19 09:10] VITALS: BP 118/79; PULSE 77; RESP 16; TEMP 36.2; O2SAT 99; BMI 22.6
--- NOTE | 2023-12-19 09:26 | ED.VIS.LOWEX ---
HPI History of Present Illness Chief Complaint: Lower Extremity Injury Informant: patient Narrative Narrative: 23-year-old female states she tripped going down some steps last night injuring her ankle/foot on the left. No other injuries. She cannot put any weight on it. [facility] Medical History Laceration, obstetrical, first degree Physical exam, pre-employment Supervision of normal first (spontaneous vaginal delivery) Home Medications vits,calcium no.78-iron fumarate-folic acid 29 mg-1 mg tablet 1 tablet PO DAILY 11/28/20 [History Last Taken 04/10/21 10:00] ferrous sulfate 325 mg (65 mg iron) tablet (iron) 325 mg PO DAILY 04/11/21 [History Last Taken 04/09/21] amoxicillin 875 mg-potassium clavulanate 125 mg tablet 1 tab PO BID #14 tabs 02/07/23 [Rx Last Taken Unknown] ondansetron 4 mg disintegrating tablet 4 mg PO Q8H PRN PRN Nausea #10 tabs 07/09/23 [Rx Last Taken Unknown] naproxen 500 mg tablet (Naprosyn) 500 mg PO BID PRN pain #14 tabs 12/19/23 [Rx Last Taken Unknown] Allergy/AdvReac Type Severity Reaction Status Date / Time No Known Allergies Allergy Verified 12/19/23 09:10 Family History Father Diabetes Grandmother Diabetes Cancer Grandfather Diabetes Grandfather Hypertension Mother Asthma Surgical History [place] teeth extracted Social History Smoking Status: Former smoker ROS ROS ED Constitutional Constitutional ED: Denies chills or fever(s) Musculoskeletal Musculoskeletal: Reports extremity pain; Denies neck pain Integumentary Denies Abrasions, rash or wounds Neurologic Neurologic: Denies paresthesias or weakness EXAM Physical Exam Const Vital Signs: 12/19/23 09:10 12/19/23 10:57 Temperature 97.2 F L 97.2 F L Temperature Source Temporal Pulse Rate 77 59 L Respiratory Rate 16 16 Blood Pressure 118/79 124/66 H Blood Pressure Mean 92 85 Pulse Ox 99 99 Oxygen Delivery Method Room Air Positive well nourished and well developed General Appearance ED: well developed and NAD Neck full ROM and supple Back/Spine normal ROM and normal to inspection Extremity Extremity Narrative: Limited range of motion of the left ankle and foot due to pain. There is no deformity or swelling anywhere. She is tender across the proximal aspect of the midfoot dorsum, and into the tissues just distal to the lateral malleolus, the lateral malleolus of the ankle is just minimally tender, the medial is nontender, the joint is stable with lateral force, and there is no tenderness at the proximal fibula or the base of the fifth metatarsal or other da silva in the foot. Neurovascular intact distally. Neuro oriented x3, no focal motor deficits and no sensory deficits noted Sensorium / Orientation: alert Psych mental status grossly normal and thought process normal Skin no wounds Rashes: no rashes MDM MDM MDM Narrative Medical decision making narrative: Three-view x-rays each of the left foot and the left ankle were obtained, and on my interpretation both series are negative for acute fracture or dislocation. The Lisfranc complex appears normal on the x-rays. Patient reassured, will treat as a sprain, she is having a lot of trouble weightbearing so we will put her in an Aircast and given crutches, she is given doses of naproxen and tramadol here as well as a prescription for NSAID and instructions for follow-up as needed. Radiography Diagnostic Testing: Clinical Impression(s) from Imaging Studies Ankle X-Ray 12/19/23 10:05 IMPRESSION: Intact left ankle. Electronically Signed: Claudio Combs MD at 10:51 EDT , Foot X-Ray 12/19/23 10:05 IMPRESSION: Intact left foot. Electronically Signed: Claudio Combs MD at 10:52 EDT , Discharge Plan Triage Chief Complaint: Lower Extremity Injury ED Provider: Mikal Corado Dx/Rx/DC Orders Clinical Impression: Sprain of ankle, left Instructions: ED Ankle Sprain (Adult) Prescriptions: New naproxen [Naprosyn] 500 mg tablet 500 mg PO BID PRN (Reason: pain) Qty: 14 0RF No Action vit,[id number] 1 TABLET tablet 1 tablet PO DAILY ferrous sulfate [iron] 325 mg (65 mg iron) Tablet 325 mg PO DAILY amoxicillin-pot clavulanate 875-125 mg tablet 1 tab PO BID Qty: 14 0RF ondansetron 4 mg tablet,disintegrating 4 mg PO Q8H PRN PRN (Reason: Nausea) Qty: 10 0RF Primary Care Provider: Marcelina Crawford Referrals: Fam Bone DPM [Med Staff - Active Staff] - (2 weeks if not improving) Activity Restrictions/Additional Instructions: Use Aircast and crutches as long as you need, at least 1 week to rest the ligaments. Disposition Disposition: Home, Self Care Discharge Date/Time: 12/19/23 10:58
--- NOTE | 2023-12-19 10:05 | RAD_ITS ---
EXAM: XR LEFT FOOT COMPLETE, 3 OR MORE VIEWS CLINICAL INDICATION: injury TECHNIQUE: Frontal, lateral and oblique views of the left foot. COMPARISON: No relevant prior studies available. FINDINGS: BONES/JOINTS: No acute abnormality. SOFT TISSUES: Normal. No soft tissue swelling or gas. No radiopaque foreign body. RAD/Foot min 3 Views IMPRESSION: Intact left foot. Electronically Signed: Claudio Combs MD at 10:52 EDT ,
--- NOTE | 2023-12-19 10:05 | RAD_ITS ---
EXAM: XR LEFT ANKLE COMPLETE, 3 OR MORE VIEWS CLINICAL INDICATION: injury TECHNIQUE: Frontal, lateral and oblique views of the left ankle. COMPARISON: No relevant prior studies available. FINDINGS: BONES/JOINTS: No acute abnormality. SOFT TISSUES: Normal. No soft tissue swelling or gas. No radiopaque foreign body. RAD/Ankle min 3 Views IMPRESSION: Intact left ankle. Electronically Signed: Claudio Combs MD at 10:51 EDT ,
[2023-12-19] MEDS: Naproxen 250 MG Tablet 500 MG PO (10:55)
[2023-12-19] MEDS: traMADol 50 MG Tablet PO (10:55)
[2023-12-19 10:57] VITALS: BP 124/66; PULSE 59; RESP 16; TEMP 36.2; O2SAT 99
== END 2023-12-19 10:58 | disposition home or self-care (01) ==
LOC: ED 10:33
PROVIDERS: Emergency Provider Emergency Medicine; PCP Nurse Practitioner Family; Visit Provider Emergency Medicine
DX: S93.402A Sprain of unspecified ligament of left ankle, initial encounter (principal); Z87.891 Personal history of nicotine dependence; X58.XXXA Exposure to other specified factors, initial encounter
CPT/HCPCS: 73610; 73630; 99285